=== PATIENT | male | born 1990 | race Caucasian/White ===

== ENCOUNTER 2019-12-23 16:39 | Emergency (ER) | payer SELFPAY ==
[2019-12-23] MEDS: Haloperidol Lactate 5 MG/ML SDV IM ONE (17:20)
[2019-12-23 17:39] LABS: CHLORIDE,CL 101 mEq/L (98-106); SODIUM,NA 140 mEq/L (136-145)
--- NOTE | 2019-12-23 17:40 | EDM.PDOC ---
ED HPI GENERAL MEDICAL PROBLEM - General Chief Complaint: General Stated Complaint: THINKS HE HAS WORM IN STOMACH Time Seen by Provider: 12/23/19 16:50 Source of Information: Reports: Patient History Limitations: Reports: Other (Patient is awake alert oriented however has psychotic features) - History of Present Illness INITIAL COMMENTS - FREE TEXT/NARRATIVE: Patient to the emergency department where he advised that worms are crawling into his umbilicus. The patient is continuously picking at this area. The patient advised that he woke up having the symptoms. The patient denies any headache denies any chest pain or shortness of breath denies any abdominal pain no nausea no vomiting he has had no diarrhea. The patient denies any other rashes denies any itching denies any other symptoms. The patient does have a long history of drug abuse. Onset: Today Duration: Hour(s): Severity: Moderate Improves with: Reports: None Worsens with: Reports: None Treatments INDUSTRY OPERATIONS INVESTIGATOR: Reports: Other (see below) (As above) - Related Data Allergies Allergy/AdvReac Type Severity Reaction Status Date / Time No Known Allergies Allergy Verified 12/23/19 16:59 Home Meds: Home Meds . [No Known Home Meds] 12/30/14 [History] Past Medical History - Past Health History Medical/Surgical History: Denies Medical/Surgical History Cardiovascular History: Reports: Hypertension - Infectious Disease History Infectious Disease History: Reports: None - Past Surgical History Other Surgical History Comment: No surgical history Social & Family History - Tobacco Use Smoking Status *Q: Never Smoker ED ROS GENERAL - Review of Systems Review Of Systems: See Below Constitutional: Reports: No Symptoms. Denies: Fever, Chills HEENT: Reports: No Symptoms Respiratory: Reports: No Symptoms. Denies: Shortness of Breath Cardiovascular: Reports: No Symptoms. Denies: Chest Pain GI/Abdominal: Reports: No Symptoms. Denies: Abdominal Pain, Diarrhea, Nausea, Vomiting : Reports: No Symptoms Musculoskeletal: Reports: No Symptoms. Denies: Neck Pain, Back Pain Skin: Reports: Other (Thinks there is worms going into his umbilicus) Neurological: Denies: Confusion, Headache, Difficulty Walking Psychiatric: Reports: Hallucinations ED EXAM, GENERAL - Physical Exam Exam: See Below Exam Limited By: No Limitations General Appearance: Alert, WD/WN Throat/Mouth: Normal Inspection, Normal Lips, Normal Voice, No Airway Compromise Head: Atraumatic, Normocephalic Neck: Normal Inspection, Supple, Non-Tender Respiratory/Chest: No Respiratory Distress, Lungs Clear, Normal Breath Sounds, Chest Non-Tender Cardiovascular: Normal Peripheral Pulses, Regular Rate, Rhythm, No Murmur Peripheral Pulses: 2+: Radial (R) GI/Abdominal: Soft, Non-Tender, No Distention Back Exam: Normal Inspection, Full Range of Motion Extremities: Normal Inspection, Normal Range of Motion, Non-Tender, No Pedal Edema, Normal Capillary Refill Neurological: Alert, Normal Gait, No Motor/Sensory Deficits Psychiatric: Other (Patient is somewhat anxious advising that there is worms crawling into his "belly button", the patient is picking at his umbilicus area trying to get the worms out) Skin Exam: Warm, Dry, Intact, Normal Color, No Rash Course - Vital Signs Text/Narrative:: [id number] and reviewed the patient's facesheet the patient's contact is his mother Karina Lawson, I called the number that is listed and go straight to a thing saying that there is no voicemail set up, the other phone number listed was an employer at the [employer] I did call this number and I spoke to Karina 1 of the managers and I did not provide her with any medical issues are basically while he was here other than I was having trouble getting some information from him and I was asking if she was aware of this patient and/or family. She did advise that he is a former employee, that they had ways sometime back and she had thought that he had moved away he does have a sister her name is Jesusita and she was going to try to get a hold of her and have her call me back. In the meantime I did call the [place] [employer] and I spoke to the officer and ask him to go to the address listed on the face sheet and he did and there was another sister there her name is Mayra I did talk with her she advised she does not have a phone and she said that he has not been sleeping very well he has had some insomnia for the last several days. She does advise that he sees a psychologist Dr. Barrios but she is unsure what any mental health diagnoses is. I also advised her that his blood pressure is elevated and asked if he had any other medical conditions and she said that she did not think he had any medical problems and she does not think he takes any medicine. I did advise her that I will probably need to transfer her the patient to the [facility] and she agrees. I spoke to Mayra using the [employer] officers phone 175 the patient CBC and general chemistries as well as the alcohol are all essentially normal. I did call [facility] and spoke to Bessie and she is going to call the screener and have the screener call me back. [phone] the screener did call back her name is Vicky, as are the patient as well as all of the information regarding his visit as well as the lab work including the urine drug screen which is positive for amphetamines and methamphetamines. She advised that she will discuss this with the other colleagues and then she will call me back. 183 the patient currently is awake alert oriented x3 and does not have a sensation or hallucinating that there is any further warms. The screener did speak to him directly and she felt that he was safe to go home at this point. James Solano was called and advised that they would transport the patient to his home as well as they would convey to his sister to monitor him closely and if he has any problems that he is to return to the emergency room and if they have trouble transportation to call 911. In talking with all this with the patient he also agrees with the treatment plan. The patient is also to follow- up with Dr. Barrios and the [facility] screener as needed as well. Last Recorded V/S: Last Vital Signs Temp 35.8 C L 12/23/19 16:45 Pulse 88 12/23/19 18:07 Resp 16 12/23/19 16:45 BP 130/80 12/23/19 18:07 Pulse Ox 99 12/23/19 16:45 - Orders/Labs/Meds Orders: Active Orders 24 hr Category Date Time Status ACETAMINOPHEN [REF] Stat Lab 12/23/19 18:06 Received SALICYLATE [REF] Stat Lab 12/23/19 18:06 Received Labs: Laboratory Tests 12/23/19 12/23/19 12/23/19 Range/Units 17:03 17:03 18:00 WBC 9.9 (5.0-10.0) 10^3/uL RBC 5.37 (4.50-6.00) 10^6/uL Hgb 16.5 (14.0-18.0) g/dL Hct 47.4 (40.0-54.0) % MCV 88.3 (82.0-94.0) fL MCH 30.7 (27.0-32.0) pg MCHC 34.8 (33.0-38.0) g/dL RDW Coeff of Bernadine 12.3 (11.0-15.0) % Plt Count 297 (150-400) 10^3/uL Neut % (Auto) 68.6 (35-85) % Lymph % (Auto) 22.8 (10-55) % [place] % (Auto) 8.2 (0-16) % Eos % (Auto) 0.2 (0-5) % Baso % (Auto) 0.2 (0-3) % Neut # (Auto) 6.78 (1.80-7.00) 10^3/uL Lymph # (Auto) 2.25 (1.00-4.80) 10^3/uL [place] # (Auto) 0.81 H (0.00-0.80) 10^3/uL Eos # (Auto) 0.02 (0.00-0.45) 10^3/uL Baso # (Auto) 0.02 10^3/uL Sodium 140 (136-145) mEq/L Potassium 3.4 L (3.5-5.0) mEq/L Chloride 101 (98-106) mEq/L Carbon Dioxide 21 (21-32) mmol/L BUN 8 (7-18) mg/dL Creatinine 1.2 (0.7-1.3) mg/dL Est Cr Clr Drug Dosing 97.61 mL/min Estimated GFR (MDRD) > 60 (>=60) mL/min Glucose 143 H D (75-99) mg/dL Calcium 9.2 (8.4-10.1) mg/dL Total Bilirubin 1.0 (0.0-1.0) mg/dL AST 21 (15-37) U/L ALT 22 (12-78) U/L Alkaline Phosphatase 85 (46-116) U/L Total Protein 8.3 H (6.4-8.2) g/dL Albumin 4.4 (3.4-5.0) g/dL Urine Color Yellow (YELLOW) Urine Appearance Clear (CLEAR) Urine pH 7.5 (4.5-8.0) Ur Specific Agency 1.020 (1.003-1.020) Urine Protein Negative (NEGATIVE) mg/dL Urine Glucose (UA) 100 H (NEGATIVE) mg/dL Urine Ketones 40 H (NEGATIVE) mg/dL Urine Occult Blood Negative (NEGATIVE) Urine Nitrite Negative (NEGATIVE) Urine Bilirubin Negative (NEGATIVE) Urine Urobilinogen >=8.0 H (0.2-1.0) EU/dL Ur Leukocyte Esterase Small H (NEGATIVE) Urine RBC Not seen (0-5) /HPF Urine WBC 0-5 (0-5) /HPF Amorphous Sediment Few H (NOT SEEN) /HPF Urine Opiates Screen (NEGATIVE) Ur Oxycodone Screen (NEGATIVE) Urine Methadone Screen (NEGATIVE) Ur Barbiturates Screen (NEGATIVE) U Tricyclic Antidepress (NEGATIVE) Ur Phencyclidine Scrn (NEGATIVE) Ur Amphetamine Screen (NEGATIVE) U Methamphetamines Scrn (NEGATIVE) Urine MDMA Screen (NEGATIVE) U Benzodiazepines Scrn (NEGATIVE) Urine Cocaine Screen (NEGATIVE) U Marijuana (THC) Screen (NEGATIVE) Ethyl Alcohol < 3 (0-3) mg/dL 12/23/19 Range/Units 18:05 WBC (5.0-10.0) 10^3/uL RBC (4.50-6.00) 10^6/uL Hgb (14.0-18.0) g/dL Hct (40.0-54.0) % MCV (82.0-94.0) fL MCH (27.0-32.0) pg MCHC (33.0-38.0) g/dL RDW Coeff of Bernadine (11.0-15.0) % Plt Count (150-400) 10^3/uL Neut % (Auto) (35-85) % Lymph % (Auto) (10-55) % [place] % (Auto) (0-16) % Eos % (Auto) (0-5) % Baso % (Auto) (0-3) % Neut # (Auto) (1.80-7.00) 10^3/uL Lymph # (Auto) (1.00-4.80) 10^3/uL [place] # (Auto) (0.00-0.80) 10^3/uL Eos # (Auto) (0.00-0.45) 10^3/uL Baso # (Auto) 10^3/uL Sodium (136-145) mEq/L Potassium (3.5-5.0) mEq/L Chloride (98-106) mEq/L Carbon Dioxide (21-32) mmol/L BUN (7-18) mg/dL Creatinine (0.7-1.3) mg/dL Est Cr Clr Drug Dosing mL/min Estimated GFR (MDRD) (>=60) mL/min Glucose (75-99) mg/dL Calcium (8.4-10.1) mg/dL Total Bilirubin (0.0-1.0) mg/dL AST (15-37) U/L ALT (12-78) U/L Alkaline Phosphatase (46-116) U/L Total Protein (6.4-8.2) g/dL Albumin (3.4-5.0) g/dL Urine Color (YELLOW) Urine Appearance (CLEAR) Urine pH (4.5-8.0) Ur Specific Agency (1.003-1.020) Urine Protein (NEGATIVE) mg/dL Urine Glucose (UA) (NEGATIVE) mg/dL Urine Ketones (NEGATIVE) mg/dL Urine Occult Blood (NEGATIVE) Urine Nitrite (NEGATIVE) Urine Bilirubin (NEGATIVE) Urine Urobilinogen (0.2-1.0) EU/dL Ur Leukocyte Esterase (NEGATIVE) Urine RBC (0-5) /HPF Urine WBC (0-5) /HPF Amorphous Sediment (NOT SEEN) /HPF Urine Opiates Screen Negative (NEGATIVE) Ur Oxycodone Screen Negative (NEGATIVE) Urine Methadone Screen Negative (NEGATIVE) Ur Barbiturates Screen Negative (NEGATIVE) U Tricyclic Antidepress Negative (NEGATIVE) Ur Phencyclidine Scrn Negative (NEGATIVE) Ur Amphetamine Screen Positive H (NEGATIVE) U Methamphetamines Scrn Positive H (NEGATIVE) Urine MDMA Screen Negative (NEGATIVE) U Benzodiazepines Scrn Negative (NEGATIVE) Urine Cocaine Screen Negative (NEGATIVE) U Marijuana (THC) Screen Negative (NEGATIVE) Ethyl Alcohol (0-3) mg/dL Meds: Medications Discontinued Medications Generic Name Dose Route Start Last Admin Trade Name Freq PRN Reason Stop Dose Admin Haloperidol Lactate 5 mg 12/23/19 17:10 12/23/19 17:20 Haldol IM 12/23/19 17:11 5 mg ONETIME ONE Administration Departure - Departure Time of Disposition: 18:35 Disposition: Home, Self-Care 01 Condition: Good Clinical Impression: Acute psychosis, Illicit drug use - Discharge Information *PRESCRIPTION DRUG MONITORING PROGRAM REVIEWED*: Not Applicable *COPY OF PRESCRIPTION DRUG MONITORING REPORT IN PATIENT ROSMERY: Not Applicable Referrals: PCP,Unknown [Primary Care Provider] - Forms: ED Department Discharge Additional Instructions: Follow-up with Dr. Barrios or Teresa the psychiatric nurse practitioner, call Thursday for an appointment time Return to the emergency department sooner if worse or any problems You can contact the screener at the [facility] as well if you have any questions or concerns Sepsis Event Note (ED) - Evaluation Sepsis Screening Result: No Definite Risk - Focused Exam Vital Signs: Vital Signs Temp Pulse Resp BP Pulse Ox 12/23/19 18:07 88 130/80 12/23/19 17:52 88 138/90 12/23/19 16:45 35.8 C L 140 H 16 160/100 H 99 - Problem List & Annotations (1) Acute psychosis SNOMED Code(s): 48834966, 93005621 Code(s): F23 - BRIEF PSYCHOTIC DISORDER Status: Acute Priority: High Current Visit: Yes (2) Illicit drug use SNOMED Code(s): 966521942 Code(s): F19.90 - OTHER PSYCHOACTIVE SUBSTANCE USE, UNSPECIFIED, UNCOMPLICATED Status: Acute Priority: High Current Visit: Yes - Problem List Review Problem List Initiated/Reviewed/Updated: Yes - My Orders Last 24 Hours: My Active Orders 12/23/19 18:06 ACETAMINOPHEN [REF] Stat SALICYLATE [REF] Stat - Assessment/Plan Last 24 Hours: My Active Orders 12/23/19 18:06 ACETAMINOPHEN [REF] Stat SALICYLATE [REF] Stat Plan: See above for complete details, see the nursing notes for the patient's past medical history, past surgical history, past surgical history and past family medical history is reviewed
[2019-12-23 17:52] VITALS: PULSE 88
[2019-12-23 18:08] VITALS: BP 130/80
== END 2019-12-23 18:55 | disposition home or self-care (01) ==
LOC: CC.ED 16:39
DX: F23 Brief psychotic disorder (principal); F19.90 Other psychoactive substance use, unspecified, uncomplicated; I10 Essential (primary) hypertension
CPT/HCPCS: 36415; 80053; 80305; 80307; 81001; 85025; 96372; 99284; J1630

== ENCOUNTER 2019-12-27 08:00 | Emergency (ER) | payer SELFPAY ==
[2019-12-27 08:12] VITALS: BP 142/104; PULSE 111
--- NOTE | 2019-12-27 08:21 | EDM.PDOC ---
ED HPI GENERAL MEDICAL PROBLEM - General Chief Complaint: Abdominal Pain Stated Complaint: abd, neck, and head pain Time Seen by Provider: 12/27/19 08:00 Source of Information: Reports: Patient History Limitations: Reports: No Limitations - History of Present Illness INITIAL COMMENTS - FREE TEXT/NARRATIVE: Michael is a 29 yo male who presents to the ED via [facility] with multiple complaints. He reports he feels weak, dizzy, and has RUQ abdominal pain radiating down through his leg, as well as a headache. Was seen and evaluated by my colleague in the ED 4 days ago for acute psychosis. Was positive for meth at that time. He reports he last used methamphetamine 1-2 days ago. Does not regularly use. Has been feeling ill since using. He reports he tried to drink water to help symptoms and drank 1-2 gallons of water overnight. Does report he has since been vomiting. Had 1 emesis upon presentation to ED. Denies any vision changes, fever, chills, chest pain, shortness of breath, diarrhea, bloody stools. Location: Reports: Head, Abdomen Quality: Reports: Ache Severity: Moderate Associated Symptoms: Reports: Headaches, Loss of Appetite, Malaise, Nausea/Vomiting, Weakness. Denies: Confusion, Chest Pain, Cough, cough w sputum, Diaphoresis, Fever/Chills, Rash, Seizure, Shortness of Breath, Syncope Right Abdomen Pain Score (Numeric/FACES): 5 - Related Data Allergies Allergy/AdvReac Type Severity Reaction Status Date / Time No Known Allergies Allergy Verified 12/27/19 08:04 Home Meds: Home Meds Pantoprazole Sodium [Protonix] 40 mg PO DAILY #30 tablet. 12/27/19 [Rx] Potassium Chloride [K-Tab ER] 40 meq PO DAILY #14 tablet.er 12/27/19 [Rx] Past Medical History - Past Health History Medical/Surgical History: Denies Medical/Surgical History Cardiovascular History: Reports: Hypertension - Infectious Disease History Infectious Disease History: Reports: None - Past Surgical History Other Surgical History Comment: No surgical history Social & Family History - Recreational Drug Use Recreational Drug Use: Yes Drug Use in Last 12 Months: Yes Recreational Drug Type: Reports: Methamphetamine Recreational Drug Use Frequency: Socially ED ROS GENERAL - Review of Systems Review Of Systems: Comprehensive ROS is negative, except as noted in HPI. Constitutional: Reports: Malaise, Weakness, Fatigue, Decreased Appetite. Denies: Fever HEENT: Reports: No Symptoms Respiratory: Reports: No Symptoms. Denies: Shortness of Breath, Pleuritic Chest Pain, Cough Cardiovascular: Reports: Lightheadedness. Denies: Chest Pain, Dyspnea on Exertion, Edema, Palpitations, Syncope Endocrine: Reports: Fatigue GI/Abdominal: Reports: Abdominal Pain, Decreased Appetite, Nausea, Vomiting. Denies: Black Stool, Bloody Stool, Diarrhea, Difficulty Swallowing : Reports: No Symptoms Musculoskeletal: Reports: Leg Pain Skin: Reports: No Symptoms Neurological: Reports: Dizziness. Denies: Confusion, Headache, Numbness, Syncope, Tingling, Difficulty Walking, Weakness, Gait Disturbance Psychiatric: Denies: Agitation, Anxiety, Confusion, Hallucinations, Homicidal Ideation, Mood Lability, Suicidal Ideation ED EXAM, GI/ABD - Physical Exam Exam: See Below Exam Limited By: No Limitations General Appearance: Alert, WD/WN, No Apparent Distress Eyes: Bilateral: EOMI Throat/Mouth: Normal Inspection, Normal Lips, Normal Gums, Normal Oropharynx, Normal Voice, No Airway Compromise Head: Atraumatic, Normocephalic Neck: Normal Inspection, Supple, Non-Tender, Full Range of Motion Respiratory/Chest: No Respiratory Distress, Lungs Clear, Normal Breath Sounds, No Accessory Muscle Use, Chest Non-Tender Cardiovascular: Normal Peripheral Pulses, Regular Rate, Rhythm, No Edema, No Gallop, No JVD, No Murmur, No Rub GI/Abdominal Exam: Normal Bowel Sounds, Soft, No Organomegaly, No Distention, No Abnormal Bruit, No Mass, Pelvis Stable, Tender (epigastric ) Back Exam: Normal Inspection, Full Range of Motion. No: CVA Tenderness (L), CVA Tenderness (R) Extremities: Normal Inspection, Normal Range of Motion, Non-Tender, Normal Capillary Refill, No Pedal Edema Neurological: Alert, Oriented, CN II-XII Intact, Normal Cognition, Normal Gait, Normal Reflexes, No Motor/Sensory Deficits Psychiatric: Normal Affect, Normal Mood Skin Exam: Warm, Dry, Intact, Normal Color, No Rash Lymphatic: No Adenopathy Course - Vital Signs Last Recorded V/S: Last Vital Signs Temp 98.5 F 12/27/19 08:05 Pulse 111 H 12/27/19 08:05 Resp 16 06/30/20 08:05 BP 142/104 H 12/27/19 08:05 Pulse Ox 99 12/27/19 08:05 - Orders/Labs/Meds Labs: Laboratory Tests 12/27/19 12/27/19 12/27/19 Range/Units 08:05 08:05 08:20 WBC 9.0 (5.0-10.0) 10^3/uL RBC 5.58 (4.50-6.00) 10^6/uL Hgb 17.2 (14.0-18.0) g/dL Hct 48.2 (40.0-54.0) % MCV 86.4 (82.0-94.0) fL MCH 30.8 (27.0-32.0) pg MCHC 35.7 (33.0-38.0) g/dL RDW Coeff of Bernadine 12.0 (11.0-15.0) % Plt Count 301 (150-400) 10^3/uL Neut % (Auto) 53.3 (35-85) % Lymph % (Auto) 36.3 (10-55) % [place] % (Auto) 9.6 (0-16) % Eos % (Auto) 0.4 (0-5) % Baso % (Auto) 0.4 (0-3) % Neut # (Auto) 4.78 (1.80-7.00) 10^3/uL Lymph # (Auto) 3.26 (1.00-4.80) 10^3/uL [place] # (Auto) 0.86 H (0.00-0.80) 10^3/uL Eos # (Auto) 0.04 (0.00-0.45) 10^3/uL Baso # (Auto) 0.04 10^3/uL Sodium 134 L (136-145) mEq/L Potassium 2.9 L* (3.5-5.0) mEq/L Chloride 94 L (98-106) mEq/L Carbon Dioxide 23 (21-32) mmol/L BUN 18 D (7-18) mg/dL Creatinine 1.0 (0.7-1.3) mg/dL Est Cr Clr Drug Dosing 117.13 mL/min Estimated GFR (MDRD) > 60 (>=60) mL/min Glucose 121 H (75-99) mg/dL Calcium 9.6 (8.4-10.1) mg/dL Total Bilirubin 1.4 H (0.0-1.0) mg/dL AST 16 (15-37) U/L ALT 22 (12-78) U/L Alkaline Phosphatase 87 (46-116) U/L Creatine Kinase 148 (35-232) U/L C-Reactive Protein 0.8 (0.2-0.8) mg/dL Total Protein 8.5 H (6.4-8.2) g/dL Albumin 4.7 (3.4-5.0) g/dL Urine Opiates Screen Negative (NEGATIVE) Ur Oxycodone Screen Negative (NEGATIVE) Urine Methadone Screen Negative (NEGATIVE) Ur Barbiturates Screen Negative (NEGATIVE) U Tricyclic Antidepress Negative (NEGATIVE) Ur Phencyclidine Scrn Negative (NEGATIVE) Ur Amphetamine Screen Negative (NEGATIVE) U Methamphetamines Scrn Positive H (NEGATIVE) Urine MDMA Screen Negative (NEGATIVE) U Benzodiazepines Scrn Negative (NEGATIVE) Urine Cocaine Screen Negative (NEGATIVE) U Marijuana (THC) Screen Negative (NEGATIVE) Ethyl Alcohol < 3 (0-3) mg/dL Meds: Medications Discontinued Medications Generic Name Dose Route Start Last Admin Trade Name Freq PRN Reason Stop Dose Admin Potassium Chloride 10 meq/ 100 mls @ 100 mls/hr 12/27/19 09:02 12/27/19 09:18 Premix IV 12/27/19 10:01 100 mls/hr ONETIME ONE Administration Sodium Chloride 1,000 mls @ 999 mls/hr 12/27/19 09:38 12/27/19 09:48 Normal Saline IV 12/27/19 10:38 999 mls/hr .BOLUS ONE Administration Departure - Departure Time of Disposition: 10:41 Disposition: Home, Self-Care 01 Condition: Good Clinical Impression: GERD (gastroesophageal reflux disease), Hypokalemia due to excessive gastrointestinal loss of potassium, Illicit drug use - Discharge Information *PRESCRIPTION DRUG MONITORING PROGRAM REVIEWED*: Not Applicable *COPY OF PRESCRIPTION DRUG MONITORING REPORT IN PATIENT ROSMERY: Not Applicable Prescriptions: Potassium Chloride [K-Tab ER] 40 meq PO DAILY #14 tablet.er Pantoprazole Sodium [Protonix] 40 mg PO DAILY #30 tablet. Instructions: Gastroesophageal Reflux Disease, Adult, [id number] Referrals: Noris Stephens SENIOR MAINFRAME PROGRAMMER ANALYST [Primary Care Provider] - Forms: ED Department Discharge Additional Instructions: - Strongly encourage patient to refrain from meth use - Start Protonix 1 tablet daily - Start Potassium Chloride supplement 40 meq (2 tablets) daily for the next week. - Both these medications can be picked up at [facility]. - Try to drink Powerade or Gatorade the next few days - Drink no more than 100 oz of water/day. Excessive water intake can cause increased vomiting. - Follow up in clinic next week to recheck potassium. Call to schedule appointment. Sepsis Event Note (ED) - Evaluation Sepsis Screening Result: No Definite Risk - Focused Exam Vital Signs: Vital Signs Temp Pulse Resp BP Pulse Ox 12/27/19 08:05 98.5 F 111 H 16 142/104 H 99 - Problem List & Annotations (1) GERD (gastroesophageal reflux disease) SNOMED Code(s): 610591430 Code(s): K21.9 - GASTRO-ESOPHAGEAL REFLUX DISEASE WITHOUT ESOPHAGITIS Status: Acute (2) Hypokalemia due to excessive gastrointestinal loss of potassium SNOMED Code(s): 88206501 Code(s): E87.6 - HYPOKALEMIA Status: Acute (3) Illicit drug use SNOMED Code(s): 454370359 Code(s): F19.90 - OTHER PSYCHOACTIVE SUBSTANCE USE, UNSPECIFIED, UNCOMPLICATED Status: Acute Priority: High - Assessment/Plan Plan: 29 yo male presented to ED via EMS with multiple complaints. Has not been feeling well since using meth 1-2 days ago. Reports he attempted to drink excess amount of water and began vomiting. Does have RUQ abdominal pain. Has been nauseated and has vomited a few times. He is calm and appears in no acute di stress. Discussed lab findings, significant for K 2.9, with patient. Discussed that I feel symptoms related to recent drug use. He was given 10 meq KCL IV and IVF during Ed stay. He is advised to start Protonix 40 mg daily as well as 40 meq KCL daily x 7 days. He is advised to refrain from meth use. Is advised to rest until feeling better. Is advised to follow up for recheck next week. Will recheck K at that time. Patient discharged from facility in satisfactory condition. He is advised to return to ED for emergent needs.
[2019-12-27 08:37] LABS: CHLORIDE,CL 94 mEq/L (98-106); SODIUM,NA 134 mEq/L (136-145)
[2019-12-27] MEDS: Potassium Chloride 10 MEQ in Premix Bag 1 BAG IV ONE (09:18)
[2019-12-27] MEDS: Sodium Chloride 0.9% 1,000 ML IV ONE (09:48)
== END 2019-12-27 10:54 | disposition home or self-care (01) ==
LOC: CC.ED 08:00
DX: K21.9 Gastro-esophageal reflux disease without esophagitis (principal); E87.6 Hypokalemia; F19.90 Other psychoactive substance use, unspecified, uncomplicated; I10 Essential (primary) hypertension; Z79.899 Other long term (current) drug therapy
CPT/HCPCS: 36415; 80053; 80305; 80307; 82550; 85025; 86140; 96365; 99284; J3480; J7030

== ENCOUNTER 2020-01-08 04:53 | Emergency (ER) | payer MEDICAID ==
[2020-01-08 05:02] VITALS: BP 147/94; PULSE 130
--- NOTE | 2020-01-08 05:32 | EDM.PDOC ---
ED HPI GENERAL MEDICAL PROBLEM - General Chief Complaint: ENT Problem Stated Complaint: something in ear Time Seen by Provider: 01/08/20 05:00 Source of Information: Reports: Patient History Limitations: Reports: No Limitations - History of Present Illness INITIAL COMMENTS - FREE TEXT/NARRATIVE: This patient presents to the ER. Patient reports he thought he felt and saw a worm in his right year. So, he took [place] spring bar soap and put a lot of soap in his right ear. Patient comes to ER to get out the "worm" from his ear. Onset: Today Onset Date: 01/08/20 Onset Time: 04:00 Severity: Moderate Improves with: Reports: None Worsens with: Reports: None Associated Symptoms: Denies: Confusion, Chest Pain, Cough, cough w sputum, Diaphoresis, Fever/Chills, Headaches, Loss of Appetite, Malaise, Nausea/ Vomiting, Rash, Seizure, Shortness of Breath, Syncope, Weakness - Related Data Allergies Allergy/AdvReac Type Severity Reaction Status Date / Time No Known Allergies Allergy Verified 01/08/20 04:54 Home Meds: Home Meds Pantoprazole Sodium [Protonix] 40 mg PO DAILY #30 tablet.dr 12/27/19 [Rx] Potassium Chloride [K-Tab ER] 40 meq PO DAILY #14 tablet.er 12/27/19 [Rx] Amoxicillin/Clavulanate K [Augmentin 875-125 MG] 1 tab PO BID #20 tablet 01/08/20 [Rx] Ciprofloxacin/Dexamethasone [Ciprodex Otic Susp] 1 drop OT BID 7 Days #1 bottle 01/08/20 [Rx] Past Medical History - Past Health History Medical/Surgical History: Denies Medical/Surgical History Cardiovascular History: Reports: Hypertension Gastrointestinal History: Reports: GERD Endocrine/Metabolic History: Reports: Hypokalemia - Infectious Disease History Infectious Disease History: Reports: None - Past Surgical History Other Surgical History Comment: No surgical history Social & Family History - Family History Family Medical History: Noncontributory - Tobacco Use Smoking Status *Q: Never Smoker - Caffeine Use Caffeine Use: Reports: None - Recreational Drug Use Recreational Drug Type: Reports: Marijuana/Hashish, Methamphetamine ED ROS ENT - Review of Systems Review Of Systems: See Below Constitutional: Reports: No Symptoms HEENT: Reports: Ear Pain (right ear, with FB sensation. "Worm in ear") Respiratory: Reports: No Symptoms Cardiovascular: Reports: No Symptoms GI/Abdominal: Reports: No Symptoms Skin: Reports: No Symptoms Neurological: Reports: No Symptoms Psychiatric: Reports: No Symptoms ED EXAM, ENT - Physical Exam Exam: See Below Exam Limited By: No Limitations General Appearance: Alert, WD/WN, No Apparent Distress, Anxious Eye Exam: Bilateral Eye: Normal Inspection, PERRL Ears: Canal Blood, Canal Foreign Body (Green [place] spring soap), Canal Swelling, TM Bulging, TM Erythema, TM Blood, TM Perforation, Other (The canal was completed obscured due to soap. This was removed, then TM has impacted soap against the TM. There is blood in the canal, blood up against the TM. Very red, swollen canal. No FB or Worm is seen on exam.) Nose: Normal Inspection, Normal Mucousa, No Blood Respiratory/Chest: No Respiratory Distress, Lungs Clear, Normal Breath Sounds Cardiovascular: Normal Peripheral Pulses, Tachycardia (110 post procedure) ED ENT PROCEDURES - Foreign Body Removal Indication:: Radhika spring soap in right ear Consent Obtained: Patient Performing Doctor:: Bryson Church Anesthesia Type: None Findings: Significant amounts of [place] spring soap removed from patient ear canal and up against the TM. Complications: No (Blood in canal and TM with possible perforation, not caused from procedure.) Comments: 100ml NS used to irrigate the site. Curette used to scrape the soap from the canal. Significant amounts of soap removed. All soap appears to be removed. No complications. Although, prior to procedure patient does have blood in canal as well. Initially was unable to see the TM, until some soap was removed from canal. Course - Vital Signs Last Recorded V/S: Last Vital Signs Temp 97.0 F 01/08/20 05:00 Pulse 130 H 01/08/20 05:00 Resp 16 01/08/20 05:00 BP 147/94 H 01/08/20 05:00 Pulse Ox 100 01/08/20 05:00 - Re-Assessments/Exams Free Text/Narrative Re-Assessment/Exam: 01/08/20 05:48 Upon reviewing patient history, has history of ER presentation of mental illness, psychosis, and meth use. Departure - Departure Time of Disposition: 05:28 Disposition: Home, Self-Care 01 Condition: Fair Clinical Impression: Foreign body in ear Qualifiers: Encounter type: initial encounter Laterality: right Qualified Code(s): T16.1XXA - Foreign body in right ear, initial encounter - Discharge Information *PRESCRIPTION DRUG MONITORING PROGRAM REVIEWED*: Not Applicable *COPY OF PRESCRIPTION DRUG MONITORING REPORT IN PATIENT ROSMERY: Not Applicable Prescriptions: Amoxicillin/Clavulanate K [Augmentin 875-125 MG] 1 tab PO BID #20 tablet Ciprofloxacin/Dexamethasone [Ciprodex Otic Susp] 1 drop OT BID 7 Days #1 bottle Instructions: Ear Foreign Body, [id number], Eardrum Rupture, [id number] Forms: ED Department Discharge Additional Instructions: Followup with ENT, call Sunny for appointment Return to the ER for worsening of condition or any emergent concerns Do not stick anything in your ears Augmentin 875mg 1 pill twice a day for 10 days #20 no refill: SENT TO PHARMACY Ciprodex ear drops , 1 drop every 12 hours for 7 days: sent to pharmacy Sepsis Event Note (ED) - Evaluation Sepsis Screening Result: No Definite Risk - Focused Exam Vital Signs: Vital Signs Temp Pulse Resp BP Pulse Ox 01/08/20 05:00 97.0 F 130 H 16 147/94 H 100
== END 2020-01-08 05:55 | disposition home or self-care (01) ==
LOC: CC.ED 04:53
DX: T16.1XXA Foreign body in right ear, initial encounter (principal); I10 Essential (primary) hypertension; K21.9 Gastro-esophageal reflux disease without esophagitis; Z79.899 Other long term (current) drug therapy
CPT/HCPCS: 69200; 99282

== ENCOUNTER 2020-01-21 03:15 | Emergency (ER) | payer MEDICAID ==
--- NOTE | 2020-01-21 03:53 | EDM.PDOC ---
ED HPI GENERAL MEDICAL PROBLEM - General Chief Complaint: General Stated Complaint: "red areas on my back are moving" Time Seen by Provider: 01/21/20 03:35 Source of Information: Reports: Patient History Limitations: Reports: No Limitations - History of Present Illness INITIAL COMMENTS - FREE TEXT/NARRATIVE: This patient is a 29 year old male that presents to the ER. Patient has had many ER visits as of recently. Patient today reports that since using Meth at 2pm having bug crawling sensation on his back. He has no other complaints. He is alert and oriented. Onset Date: 01/20/20 Onset Time: 14:00 Location: Reports: Back Severity: Mild Improves with: Reports: None Worsens with: Reports: None Associated Symptoms: Reports: No Other Symptoms. Denies: Confusion, Chest Pain, Cough, cough w sputum, Diaphoresis, Fever/Chills, Headaches, Loss of Appetite, Malaise, Nausea/Vomiting, Rash, Seizure, Shortness of Breath, Syncope, Weakness - Related Data Allergies Allergy/AdvReac Type Severity Reaction Status Date / Time No Known Allergies Allergy Verified 01/21/20 03:19 Home Meds: Home Meds . [No Known Home Meds] 01/21/20 [History] Past Medical History - Past Health History Medical/Surgical History: Denies Medical/Surgical History Cardiovascular History: Reports: Hypertension Gastrointestinal History: Reports: GERD Endocrine/Metabolic History: Reports: Hypokalemia - Infectious Disease History Infectious Disease History: Reports: None - Past Surgical History Other Surgical History Comment: No surgical history Social & Family History - Family History Family Medical History: Noncontributory - Tobacco Use Smoking Status *Q: Never Smoker - Caffeine Use Caffeine Use: Reports: Soda Other Caffeine Use: says he drinks "maybe 2 sodas a day." - Recreational Drug Use Recreational Drug Use: Yes Drug Use in Last 12 Months: Yes Recreational Drug Type: Reports: Marijuana/Hashish, Other (see below) Other Recreational Drug Type: meth ED ROS GENERAL - Review of Systems Review Of Systems: See Below Constitutional: Reports: No Symptoms HEENT: Reports: No Symptoms Respiratory: Reports: No Symptoms Cardiovascular: Reports: No Symptoms. Denies: Chest Pain, Dyspnea on Exertion, Edema, Lightheadedness, Palpitations, Syncope Endocrine: Reports: No Symptoms GI/Abdominal: Reports: No Symptoms Musculoskeletal: Reports: No Symptoms Skin: Reports: Other (bugs crawling sensation on back) Neurological: Reports: No Symptoms. Denies: Confusion, Dizziness, Headache, Seizure, Syncope, Trouble Speaking, Difficulty Walking, Weakness, Change in Speech Psychiatric: Reports: No Symptoms Hematologic/Lymphatic: Reports: No Symptoms Immunologic: Reports: No Symptoms ED EXAM, GENERAL - Physical Exam Exam: See Below Exam Limited By: No Limitations General Appearance: Alert, WD/WN, No Apparent Distress, Anxious Eye Exam: Bilateral Eye: EOMI, PERRL Ears: Hearing Grossly Normal Ear Exam: Bilateral Ear: Other (right ear auricle and canal erythema, abrasions.) Nose: Normal Inspection, Normal Mucosa, No Blood Throat/Mouth: Normal Inspection, Normal Lips, Normal Teeth, Normal Gums, Normal Oropharynx, Normal Voice, No Airway Compromise Head: Normocephalic, Sinus Tenderness Neck: Normal Inspection, Supple, Non-Tender, Full Range of Motion Respiratory/Chest: No Respiratory Distress, Lungs Clear, Normal Breath Sounds, No Accessory Muscle Use Cardiovascular: Normal Peripheral Pulses, Tachycardia (140 on exam) Peripheral Pulses: 2+: Radial (L), Radial (R), Posterior Tibial (L), Posterior Tibial (R) Back Exam: Normal Inspection Extremities: Normal Inspection Neurological: Alert, Oriented, Normal Cognition, Normal Gait, No Motor/Sensory Deficits Psychiatric: Anxious Skin Exam: Warm, Dry, Erythema (right ear), Wound/Incision (central upper chest scracth jose and abrasions) Lymphatic: No Adenopathy Course - Vital Signs Last Recorded V/S: Last Vital Signs Temp 97.1 F 01/21/20 04:58 Pulse 84 01/21/20 04:58 Resp 16 01/21/20 04:58 BP 157/98 H 01/21/20 04:58 Pulse Ox 100 01/21/20 04:58 - Orders/Labs/Meds Labs: Laboratory Tests 01/21/20 01/21/20 01/21/20 Range/Units 04:26 04:26 04:42 WBC 13.0 H (5.0-10.0) 10^3/uL RBC 5.12 (4.50-6.00) 10^6/uL Hgb 15.7 (14.0-18.0) g/dL Hct 45.9 (40.0-54.0) % MCV 89.6 (82.0-94.0) fL MCH 30.7 (27.0-32.0) pg MCHC 34.2 (33.0-38.0) g/dL RDW Coeff of Bernadine 12.5 (11.0-15.0) % Plt Count 293 (150-400) 10^3/uL Neut % (Auto) 75.4 (35-85) % Lymph % (Auto) 15.9 (10-55) % [place] % (Auto) 8.4 (0-16) % Eos % (Auto) 0.1 (0-5) % Baso % (Auto) 0.2 (0-3) % Neut # (Auto) 9.79 H (1.80-7.00) 10^3/uL Lymph # (Auto) 2.07 (1.00-4.80) 10^3/uL [place] # (Auto) 1.09 H (0.00-0.80) 10^3/uL Eos # (Auto) 0.01 (0.00-0.45) 10^3/uL Baso # (Auto) 0.02 10^3/uL Sodium 141 (136-145) mEq/L Potassium 3.6 (3.5-5.0) mEq/L Chloride 103 (98-106) mEq/L Carbon Dioxide 23 (21-32) mmol/L BUN 8 (7-18) mg/dL Creatinine 1.1 (0.7-1.3) mg/dL Est Cr Clr Drug Dosing 103.23 mL/min Estimated GFR (MDRD) > 60 (>=60) mL/min Glucose 129 H D (75-99) mg/dL Calcium 9.5 (8.4-10.1) mg/dL Total Bilirubin 0.8 (0.0-1.0) mg/dL AST 21 (15-37) U/L ALT 32 (12-78) U/L Alkaline Phosphatase 73 (46-116) U/L Creatine Kinase 208 (35-232) U/L Total Protein 8.6 H (6.4-8.2) g/dL Albumin 4.8 (3.4-5.0) g/dL Urine Color Yellow (YELLOW) Urine Appearance Clear (CLEAR) Urine pH 6.0 (4.5-8.0) Ur Specific [place] >= 1.030 H (1.003-1.020) Urine Protein 30 H (NEGATIVE) mg/dL Urine Glucose (UA) Negative (NEGATIVE) mg/dL Urine Ketones Trace H (NEGATIVE) mg/dL Urine Occult Blood Negative (NEGATIVE) Urine Nitrite Negative (NEGATIVE) Urine Bilirubin Negative (NEGATIVE) Urine Urobilinogen 1.0 (0.2-1.0) EU/dL Ur Leukocyte Esterase Negative (NEGATIVE) Urine RBC Not seen (0-5) /HPF Urine WBC Not seen (0-5) /HPF Urine Opiates Screen (NEGATIVE) Ur Oxycodone Screen (NEGATIVE) Urine Methadone Screen (NEGATIVE) Ur Barbiturates Screen (NEGATIVE) U Tricyclic Antidepress (NEGATIVE) Ur Phencyclidine Scrn (NEGATIVE) Ur Amphetamine Screen (NEGATIVE) U Methamphetamines Scrn (NEGATIVE) Urine MDMA Screen (NEGATIVE) U Benzodiazepines Scrn (NEGATIVE) Urine Cocaine Screen (NEGATIVE) U Marijuana (THC) Screen (NEGATIVE) 01/21/20 Range/Units 05:10 WBC (5.0-10.0) 10^3/uL RBC (4.50-6.00) 10^6/uL Hgb (14.0-18.0) g/dL Hct (40.0-54.0) % MCV (82.0-94.0) fL MCH (27.0-32.0) pg MCHC (33.0-38.0) g/dL RDW Coeff of Bernadine (11.0-15.0) % Plt Count (150-400) 10^3/uL Neut % (Auto) (35-85) % Lymph % (Auto) (10-55) % [place] % (Auto) (0-16) % Eos % (Auto) (0-5) % Baso % (Auto) (0-3) % Neut # (Auto) (1.80-7.00) 10^3/uL Lymph # (Auto) (1.00-4.80) 10^3/uL [place] # (Auto) (0.00-0.80) 10^3/uL Eos # (Auto) (0.00-0.45) 10^3/uL Baso # (Auto) 10^3/uL Sodium (136-145) mEq/L Potassium (3.5-5.0) mEq/L Chloride (98-106) mEq/L Carbon Dioxide (21-32) mmol/L BUN (7-18) mg/dL Creatinine (0.7-1.3) mg/dL Est Cr Clr Drug Dosing mL/min Estimated GFR (MDRD) (>=60) mL/min Glucose (75-99) mg/dL Calcium (8.4-10.1) mg/dL Total Bilirubin (0.0-1.0) mg/dL AST (15-37) U/L ALT (12-78) U/L Alkaline Phosphatase (46-116) U/L Creatine Kinase (35-232) U/L Total Protein (6.4-8.2) g/dL Albumin (3.4-5.0) g/dL Urine Color (YELLOW) Urine Appearance (CLEAR) Urine pH (4.5-8.0) Ur Specific [place] (1.003-1.020) Urine Protein (NEGATIVE) mg/dL Urine Glucose (UA) (NEGATIVE) mg/dL Urine Ketones (NEGATIVE) mg/dL Urine Occult Blood (NEGATIVE) Urine Nitrite (NEGATIVE) Urine Bilirubin (NEGATIVE) Urine Urobilinogen (0.2-1.0) EU/dL Ur Leukocyte Esterase (NEGATIVE) Urine RBC (0-5) /HPF Urine WBC (0-5) /HPF Urine Opiates Screen Negative (NEGATIVE) Ur Oxycodone Screen Negative (NEGATIVE) Urine Methadone Screen Negative (NEGATIVE) Ur Barbiturates Screen Negative (NEGATIVE) U Tricyclic Antidepress Negative (NEGATIVE) Ur Phencyclidine Scrn Negative (NEGATIVE) Ur Amphetamine Screen Positive H (NEGATIVE) U Methamphetamines Scrn Positive H (NEGATIVE) Urine MDMA Screen Positive H (NEGATIVE) U Benzodiazepines Scrn Negative (NEGATIVE) Urine Cocaine Screen Negative (NEGATIVE) U Marijuana (THC) Screen Positive H (NEGATIVE) Meds: Medications Discontinued Medications Generic Name Dose Route Start Last Admin Trade Name Freq PRN Reason Stop Dose Admin Sodium Chloride 1,000 mls @ 1,000 mls/hr 01/21/20 04:25 01/21/20 04:48 Normal Saline IV 01/21/20 05:24 1,000 mls/hr .BOLUS ONE Administration - Re-Assessments/Exams Free Text/Narrative Re-Assessment/Exam: 01/21/20 03:46 Patient initial exam HR was 140. Patient did report he had used meth today and then walked 5 blocks to get here. Patient is alert and oriented. Patient denies any chest pain, shortness of breath, or any other symptoms other than bugs crawling on back. These bugs are not visible to him, just feels like crawling skin per patient. Due to HR and walking 5 blocks, will allow to rest and evaluate HR again after resting. Although, I believe his tachycardia is related to waking 5 blocks and his meth use. 01/21/20 04:18 Patient evaluated again. His HR is now 120. Patient continues to deny any other symptoms other than crawling skin on back. He does not appear short of breath or distressed. Patient talking in full and complete sentences without difficulty. Discussed with patient his meth use and a need to stop this use. He agrees, but reports he is trying, but its hard. Due to patient HR elevation, will chest electrolytes and CK to r/o rhabdo. 01/21/20 05:21 Patient HR is now 84, nearly done with NS bolus. Labs reviewed, CK is normal. Will discharge. Departure - Departure Time of Disposition: 05:26 Disposition: Home, Self-Care 01 Condition: Fair Clinical Impression: Methamphetamine abuse, Tachycardia, Dehydration - Discharge Information *PRESCRIPTION DRUG MONITORING PROGRAM REVIEWED*: Not Applicable *COPY OF PRESCRIPTION DRUG MONITORING REPORT IN PATIENT ROSMERY: Not Applicable Instructions: Stimulant Use Disorder-Methamphetamines, Dehydration, Adult, [id number] Referrals: PCP,None [Primary Care Provider] - Forms: ED Department Discharge Additional Instructions: Stop Drug Use Return to the Emergency department for emergencies: Such as , not breathing, chest pain, shortness of breath, or other concerns Increase fluid intake Followup with a primary care provider Sepsis Event Note (ED) - Evaluation Sepsis Screening Result: No Definite Risk - Focused Exam Vital Signs: Vital Signs Temp Pulse Pulse Resp BP BP Pulse Ox 01/21/20 04:58 97.1 F 84 16 157/98 H 100 01/21/20 04:13 124 H 16 150/107 H 100 01/21/20 03:47 133 H 16 152/105 H 100 01/21/20 03:16 97.1 F 142 H 16 150/94 H 100 - Assessment/Plan Plan: PLEASE SEE RN NOTE FOR PFSH
[2020-01-21] MEDS ORDERED: Sodium Chloride 0.9% 1,000 ML IV ONE (04:25)
[2020-01-21 04:57] LABS: CHLORIDE,CL 103 mEq/L (98-106); SODIUM,NA 141 mEq/L (136-145)
[2020-01-21 05:29] VITALS: BP 154/90; PULSE 75
== END 2020-01-21 06:00 | disposition home or self-care (01) ==
LOC: CC.ED 03:15
DX: E86.0 Dehydration (principal); R00.0 Tachycardia, unspecified; F15.10 Other stimulant abuse, uncomplicated; I10 Essential (primary) hypertension
CPT/HCPCS: 36415; 80053; 80305-QW; 81001; 82550; 85025; 96360; 99284-25; J7030